=== PATIENT | male | born 1945 | race Caucasian/White ===

== ENCOUNTER 2018-05-18 18:27 | Observation (INO) | payer OTHER ==
--- NOTE | 2018-05-18 19:16 | PDOC ---
History of Present Illness - General Stated Complaint: CHEST PAIN Time Seen by Provider: 05/18/18 19:15 History Source: Patient, Family Exam Limitations: No Limitations - History of Present Illness Initial Comments: 05/18/18 21:05 The patient is a 73 year old male, with a significant PMH of Type II DM, HTN, HLD, COPD, CAD, [place] , and CVA x2 who presents to the emergency department with chest pain since 5PM today. Patient states he was sitting down to eat at [facility] when he suddenly began to experience the chest pain. Patient describes the chest pain as midsternal, nonradiating, intermittent and lasting for 30 minutes at a time. Patient denies any other associated symptoms. Patient denies any alleviating or exacerbating factors. Patient was given nitro and aspirin by EMS en route to the ED with improvement of his pain. Patient was otherwise in his usual state of health prior to the onset of this chest pain. As per the daughter at bedside, the patient uses a lot of upper body strength to get up from his wheelchaird. Patient has similar chest pain approximately one to two times a year. The patient denies leg swelling, abdominal pain, palpitations, shortness of breath, headache and dizziness. Denies fever, chills, nausea, vomit, diarrhea and constipation. Denies dysuria, frequency, urgency and hematuria. Allergies: NKA Past surgical history: None reported. Social history: No reported alcohol, drug or cigarette use. PCP: Dr. Zambrano Past History - Past Medical History Allergies/Adverse Reactions: Allergies Allergy/AdvReac Type Severity Reaction Status Date / Time shellfish derived Allergy Severe Difficulty Verified 12/12/17 19:27 Breathing crab Allergy Uncoded 01/17/16 06:26 lobster Allergy Uncoded 01/17/16 06:26 shrimp Allergy Uncoded 01/17/16 06:26 Home Medications: Ambulatory Orders Acetaminophen [Pain Relief] 500 mg PO BID 01/17/16 Aspirin/Dipyridamole [Aggrenox -] 1 combo PO DAILY 01/17/16 Cholecalciferol (Vitamin D3) [Vitamin D3] 1,000 unit PO DAILY 01/17/16 Menthol [Icy Hot] 1 each TP BID 01/17/16 Polyethylene Glycol 3350 [Miralax 119 gm Btl -] 17 gm PO DAILY 01/17/16 Vit A/Vitamin D3/E/Aloe V/Zinc [Periguard Ointment] 0 gm TP BID 01/17/16 Vitamins A and D [Vitamin A and D] 113 gm TP BID 01/17/16 hydrALAZINE HCL [Apresoline -] 25 mg PO TID 01/17/16 Acetaminophen [Tylenol] 650 mg PO QID PRN #28 capsule 12/12/17 Docusate Sodium [Colace] 200 mg PO DAILY 12/12/17 Insulin (Levemir) [Levemir Vial] 22 unit SQ DAILY 12/12/17 Insulin Aspart [Novolog] 0 unit SQ TID 12/12/17 Insulin Aspart [Novolog] 6 unit SQ TID 12/12/17 Oxycodone HCl 5 mg PO Q4H PRN 12/12/17 Simvastatin 5 mg PO DAILY 12/12/17 Asthma: Yes Cardiac Disorders: Yes ([place] X 2) CVA: Yes COPD: Yes Diabetes: Yes HTN: Yes Hypercholesterolemia: Yes - Immunization History Immunization Up to Date: Yes - Suicide/Smoking/Psychosocial Hx Smoking Status: Yes Smoking History: Unknown if ever smoked Have you smoked in the past 12 months: No Number of Cigarettes Smoked Daily: 10 If you are a former smoker, when did you quit?: 30 years Hx Alcohol Use: No Drug/Substance Use Hx: No Substance Use Type: None Hx Substance Use Treatment: No Review of Systems - Review of Systems Able to Perform ROS?: Yes Comments:: 05/18/18 21:05 CONSTITUTIONAL: No reported: Fever, Chills, Diaphoresis, Generalized Weakness, Malaise, Loss of Appetite HEENT: No reported: Rhinorrhea, Nasal Congestion, Throat Pain, Throat Swelling, Difficulty Swallowing, Mouth Swelling, Ear Pain, Eye Pain, Visual Changes CARDIOVASCULAR: Reported: Chest Pain. No reported: Syncope, Palpitations, Irregular Heart Rate, Lightheadedness, Peripheral Edema RESPIRATORY: No reported: Cough, Shortness of Breath, SOB with Exertion, Orthopnea, Wheezing , Stridor, Hemoptysis GASTROINTESTINAL: No reported: Abdominal pain, Abdominal Distension, Nausea, Vomiting, Diarrhea, Constipation, Melena, Hematochezia GENITOURINARY: No reported: Dysuria, Frequency, Urgency, Hesitancy, Flank Pain, Genital Pain MUSCULOSKELETAL: No reported: Myalgia, Arthralgia, Joint Swelling, Back pain, Neck Pain SKIN: No reported: Rash, Itching, Pallor HEMEATOLOGIC/IMMUNOLOGIC: No reported: Easy Bleeding, Easy Bruising, Lymphadenopathy, Frequent infections ENDOCRINE: No reported: Unexplained Weight Gain, Unexplained Weight Loss, Heat Intolerance , Cold Intolerance NEUROLOGIC: No reported: Headache, Focal Weakness, Paresthesias, Vertigo, Lightheadedness, Unsteady Gait, Seizure, Mental Status Changes, Incontinence PSYCHIATRIC: No reported: Anxiety, Depression *Physical Exam - Vital Signs Last Vital Signs Temp Pulse Resp BP Pulse Ox 97.3 F L 92 H 22 H 140/92 100 05/18/18 18:29 05/18/18 18:29 05/18/18 18:29 05/18/18 18:29 05/18/18 18:29 - Physical Exam Comments: 05/18/18 19:37 GENERAL: The patient is awake, alert, and fully oriented, Nontoxic - in no acute distress. HEAD: Normocephalic, atraumatic. EYES: extraocular movements intact, sclera anicteric, conjunctiva clear. ENT: Normal voice, Moist mucous membranes NECK: Normal range of motion, supple LUNGS: Breath sounds equal, clear to auscultation bilaterally. No wheezes, no rhonchi, no rales. HEART: Regular rate and rhythm, normal S1 and S2 without murmur, rub or gallop. MSK: mild reproducible sternal pain. ABDOMEN: Soft, nontender, normoactive bowel sounds. No guarding, no rebound. . No CVA tenderness EXTREMITIES: Normal range of motion, no edema. no calf tenderness, neg homans sign NEUROLOGICAL: No facial assymetry, Normal speech, PSYCH: Normal mood, normal affect. SKIN: Warm, Dry, normal turgor, Heart Score/ECG Review - History History: Slightly suspicious - Electrocardiogram EKG: Non specific repolarization disturbance - Age Age: >/= 65 - Risk Factors Risk Factors Heart Score: Yes Hx Hypercholesterolemia, Yes Hx Hypertension, Yes Hx Diabetes Based on the list above the patient has:: >/=3 risk factors or Hx atherosclerotic disease - Troponin Troponin: </= normal limit - Score Heart Score - Total: 5 - ECG Impressions Comment:: 05/18/18 20:20 Twelve-lead EKG was performed and reviewed by me. There is normal sinus rhythm with a normal rate. Rate of 84 PVCs present low voltage QRS no st changes suggestive of acute infarction Moderate Sedation - Procedure Monitoring Vital Signs: Procedure Monitoring Vital Signs Temperature 97.3 F L 05/18/18 18:29 Pulse Rate 92 H 05/18/18 18:29 Respiratory Rate 22 H 05/18/18 18:29 Blood Pressure 140/92 05/18/18 18:29 O2 Sat by Pulse Oximetry (%) 100 05/18/18 18:29 ED Treatment Course - LABORATORY CBC & Chemistry Diagram: 05/18/18 20:00 05/18/18 20:00 - ADDITIONAL ORDERS Additional order review: Laboratory Results 05/18/18 05/18/18 20:00 20:00 PT with INR 13.50 H INR 1.14 H Sodium 140 Potassium 4.2 Chloride 104 Carbon Dioxide 30 Anion Gap 6 L BUN 24 H Creatinine 1.4 H Creat Clearance w eGFR 49.96 Random Glucose 267 H Calcium 8.7 Total Bilirubin 0.4 AST 19 ALT 28 Alkaline Phosphatase 104 Creatine Kinase 115 Troponin I < 0.02 Total Protein 7.1 Albumin 3.7 05/18/18 20:00 RBC 4.10 MCV 97.6 H MCHC 35.3 RDW 12.4 MPV 8.0 Neutrophils % 55.5 D Lymphocytes % 27.2 D Monocytes % 11.1 H D Eosinophils % 5.4 H D Basophils % 0.8 - RADIOLOGY Radiology Studies Ordered: Category Date Time Status CHEST X-RAY PORTABLE* [RAD] Stat Radiology 05/18/18 19:33 Taken - Medications Given in the ED: ED Medications Discontinued Medications Generic Name Dose Route Start Last Admin Trade Name Freq PRN Reason Stop Dose Admin Acetaminophen 650 mg 05/18/18 19:33 05/18/18 19:55 Tylenol - PO 05/18/18 19:34 650 mg ONCE ONE Administration Medical Decision Making - Medical Decision Making 05/18/18 19:33 73y M hx of CAD sp [place], multiple CVAs, HTN, DM,HL, presents with complaint of chest pain. Pt notes the chest pain started approx 5:20pm, while he was sitting down to eat. Denies associated n/v, sob, diaphoresis, cough, LE edema.palpitations lightheadedness. No radiation of pain to shoulders, back, arm, abd, LE. Pain is intermittent and lasts approx 30 minutes, pain is currently improved. pt also notes he felt better after gtting ASA and NTG via EMS. concern for possible acs, consider MSK pain will obtain trops, cxr pt given asa by EMS A portion of this note was documented by scribe services under my direction. I have reviewed the details of the note, within reason, and agree with the documentation with the following case summary and management plan written by me 05/18/18 21:09 The patient's blood work was reviewed it is unremarkable including negative troponins 1, chest x-ray is negative for acute process. The patient for further evaluation of chest pain based on heart score of 5 and improvement of cp with nitro 05/18/18 23:[address] pleitez agree with observation under dr. denton's service stable for tele Case discussed in detail with admitting physician including history, physical exam and ancillary studies. Admitting physician has assumed care for the patient, will follow all pending diagnostics and will complete the evaluation and treatment. *DC/Admit/Observation/Transfer Diagnosis at time of Disposition: Chest pain at rest - Discharge Dispostion Condition at time of disposition: Stable Decision to Admit order: Yes Decision to Admit order Date/Time: Decision to Admit Order Category Date Time Status Decision to Admit to Hospital Routine Admission 05/18/18 23:08 Ordered - Referrals Referrals: Ludin Zambrano MD [Primary Care Provider] - - Patient Instructions - Post Discharge Activity
[2018-05-18] MEDS ORDERED: ACETAMINOPHEN 325 MG TABLET (FP) PO ONE (19:33)
[2018-05-18] MEDS ORDERED: ACETAMINOPHEN 325 MG TABLET (FP) ONE (19:51)
[2018-05-18 20:15] LABS: BASO % 0.8 % (0-2.0); EOS % 5.4 % (0-4.5); HEMOGLOBIN 14.1 GM/dL (11.7-16.9); LYMPH % 27.2 % (8-40); MCH 34.5 pg (25.7-33.7); MCHC 35.3 g/dl (32.0-35.9); MEAN CELL VOLUME 97.6 fl (80-96); MONO % 11.1 % (3.8-10.2); NEUT % 55.5 % (42.8-82.8); PLATELET COUNT 210 K/MM3 (134-434); RDW 12.4 % (11.9-15.9); WHITE BLOOD COUNT 6.9 K/mm3 (4.0-10.0)
[2018-05-18 20:38] LABS: INR 1.14 (0.83-1.09); PROTHROMBIN TIME (PATIENT) 13.5 SEC (9.7-13.0)
[2018-05-18 20:55] LABS: ALBUMIN 3.7 g/dl (3.4-5.0); ALK PHOS 104 U/L (45-117); ANION GAP 6 MMOL/L (8-16); BILIRUBIN,TOTAL 0.4 mg/dL (0.2-1); BLOOD UREA NITROGEN 24 mg/dL (7-18); CALCIUM 8.7 mg/dL (8.5-10.1); CHLORIDE 104 mmol/L (98-107); CO2 30 mmol/L (21-32); CREATININE 1.4 mg/dL (0.55-1.3); GLUCOSE,RANDOM 267 mg/dL (74-106); POTASSIUM 4.2 mmol/L (3.5-5.1); SGOT/AST 19 U/L (15-37); SGPT/ALT 28 U/L (13-61); SODIUM 140 mmol/L (136-145); TOT PROT 7.1 g/dl (6.4-8.2)
--- NOTE | 2018-05-18 23:38 | PN ---
Teaching Attending Note Name of Resident: Reji Mattson ATTENDING PHYSICIAN STATEMENT I saw and evaluated the patient. I reviewed the resident's note and discussed the case with the resident. I agree with the resident's findings and plan as documented. SUBJECTIVE: Patient seen and examined; please refer to resident note for further historical documentation. He presents from [facility]; CP with dinner when he was eating. He was BIBA; they gave him SL NTG and ASA 162; the NTG did help alleviate his chest pain. CP lasted aprox 1 hour; is currently complaining of R -sided lateral CP that is somewhat atypical in nature. No radiation, etc. Pain is reproducible mid-sternum extending to the right He did indicate that the pain is similar to prior MS but is in a different location. 2013 MIBI shows a fixed diaphragmatic attenuation, 2016 echo reviewed as well which shows LVEF wnl without any focal wmas. He is unsure of who his para professional is and is a somewhat poor historian. Not on BB as per home meds. He does have a h/o CAD (no PCI, unsure where the cath was done, documented MS >10 years ago), CVAx2 (>10 years ago, no documented residual fnd); this makes him high risk for ACS. Will place on telemetry observation on the medicine service and consult cardiology. 10 sys ROS done and negative aside from HPI PMH and PSH reviewed; Hypertension, Hyperlipidemia, Type 2 diabetes mellitus, COPD, CAD, [place], CVA, Depression/Anxiety. Poor functional status Socially he is [place]. Has not seen CV in multiple years. OBJECTIVE: VS, labs, imaging reviewed NAD, AAO, resting comfortably in bed L-fake eye; NC AT EOMI PERRLA CN2-12 wnl, no fnd RRR s1/2 no mgr Lungs CTAB w/ sym exp NT ND +BS Labs reviewed; CBC shows normal h/h with slight macrocytosis; differential reveals slight eosinophilia that is also seen on 2016 studies. Coags unremarkable. CE negative. Cr 1.4 which is around his baseline since 2011. LFTs completely unremarkable. EKG reviewed and tele reviewed; no major ST-T changes, some PVCs. ASSESSMENT AND PLAN: Presents w/ chest pain that is slightly atypical in nature but with multiple risk factors; doesn't regularly see cardiology. Will r/o ACS 1) Unstable Angina, r/o ACS w/ documented h/o CAD -Place on observation, trend Geronimo, serial EKG. Consult cardiology; will defer further stress testing, etc. to their service (MIBI 2013 reviewed). We will check an echo. He is high risk for CAD given his prior history. -He did see Dr. Poole 2015 for similar-sounding R-sided chest pain and was able to be discharged at that time. -Continue ASA, adding metoprolol tartrate 25 BID. No need for NAZIA given nl LVEF on prior echo. Check A1c, TSH, Lipids, C/w statin (consider changing to lipitor or crestor as an OP given ASCVD risk). -Repeat NTG dose for chest pain alongside APAP for the reproducible component. 2) HTN -He is on hydralazine at home; unclear why. -Continue home meds now but would recommend close FU with PCP to see if he could be moved towards medications indicated with GDMT 3) H/O CVA -Continue home meds; unremarkable neuro exam. 4) DM -Continue some insulin regimine; SSI 5) COPD hx -No issues; monitor. 6) HLD -Continue statin; as per #1 FENA -250cc LR bolus then PO -PRN replete -Cardiac diet -OOB2C, fall precations Full Code Consultants: Cardiology Dispo: Pending specialist evaluation.
--- NOTE | 2018-05-18 23:55 | HP ---
CHIEF COMPLAINT: Chest pain PCP: Dr. Zambrano HISTORY OF PRESENT ILLNESS: 73 y/o M, primarily austrian speaking with PMHx of T2DM, [place], CAD, CVA, HTN was BIBEMS from [facility] for chest pain. Part of the hx was provided by [place] Staff. At approx 17:15 this evening, patient was sitting his wheel chair and began to eat dinner where he suddenly felt severe chest pain. He describes this pain as >10/10, Midsternal sharp pain that radiated to his right chest. He has no associated jaw claudication, palpitations, diaphoresis or nausea. He mentions this pain feels different and much worse from his [place] in the past. Patient is unable to recall details after onset, and his next memory is of arrival in ED. In Route, he was given SL Nitro and ASA 162mg that improved the pain. The pain is reproducible and worsens with inspiration but does not change with position. Denies any recent trauma or falls. Patient is unable to identify any triggering factors. [place] Staff mentions patient is A&Ox3 but has been becoming more confused recently. Additionally he has had whole body aches from the past few weeks and Coughing. Patient denies any recent fevers, chills, SOB, nausea, vomiting, diarrhea, constipation. Recent Travel: Denies PAST MEDICAL HISTORY: T2DM, [place], CAD, CVA, HTN, HLD, COPD, Anxiety, GERD PAST SURGICAL HISTORY: Denies Social History: Smoking: quit 30 years ago Alcohol: Denies Drugs: Denies Ambulatoin: Wheel chair Residence: [facility] Family History: Denies Allergies shellfish derived Allergy (Severe, Verified 12/12/17 19:27) Difficulty Breathing crab Allergy (Uncoded 01/17/16 06:26) lobster Allergy (Uncoded 01/17/16 06:26) shrimp Allergy (Uncoded 01/17/16 06:26) HOME MEDICATIONS: Home Medications Medication Instructions Recorded Acetaminophen [Pain Relief] 500 mg PO BID 01/17/16 Aspirin/Dipyridamole [Aggrenox -] 1 combo PO DAILY 01/17/16 Cholecalciferol (Vitamin D3) 1,000 unit PO DAILY 01/17/16 [Vitamin D3] Menthol [Icy Hot] 1 each TP BID 01/17/16 Polyethylene Glycol 3350 [Miralax 17 gm PO DAILY 01/17/16 119 gm Btl -] Vit A/Vitamin D3/E/Aloe V/Zinc 0 gm TP BID 01/17/16 [Periguard Ointment] Vitamins A and D [Vitamin A and D] 113 gm TP BID 01/17/16 hydrALAZINE HCL [Apresoline -] 25 mg PO TID 01/17/16 Acetaminophen [Tylenol] 650 mg PO QID PRN #28 capsule 12/12/17 Docusate Sodium [Colace] 200 mg PO DAILY 12/12/17 Insulin (Levemir) [Levemir Vial] 22 unit SQ DAILY 12/12/17 Insulin Aspart [Novolog] 0 unit SQ TID 12/12/17 Insulin Aspart [Novolog] 6 unit SQ TID 12/12/17 Oxycodone HCl 5 mg PO Q4H PRN 12/12/17 Simvastatin 5 mg PO DAILY 12/12/17 REVIEW OF SYSTEMS As per HPI PHYSICAL EXAMINATION Vital Signs - 24 hr 05/18/18 18:29 Temperature 97.3 F L Pulse Rate 92 H Respiratory 22 H Rate Blood Pressure 140/92 O2 Sat by Pulse 100 Oximetry (%) GENERAL: A&Ox3, Mild distress HEAD: NCAT EYES: Left eye prothesis, Right pupil, round and reactive to light EARS, NOSE, THROAT: Poor dentition, Oropharynx clear without exudates. Moist mucous membranes. NECK: No JVD LUNGS: CTA b/l, No wheezes, no crackles HEART: Regular rate and rhythm, normal S1 and S2 without murmur CHEST: Tender to palpation over the Midsternum and Right Anterior chest ABDOMEN: Soft, nontender, not distended, + bowel sounds, no guarding, no rebound MUSCULOSKELETAL: No CVA tenderness. EXTREMITIES: 2+ pulses, No peripheral edema. NEUROLOGICAL: Cranial nerves II-XII intact. Normal speech. 2/5 muscle strength in the Left UE and LE; 4/5 in the right. Gross sensation intact throughout. SKIN: Warm, dry Laboratory Results - last 24 hr 05/18/18 05/18/18 05/18/18 20:00 20:00 20:00 WBC 6.9 RBC 4.10 Hgb 14.1 Hct 40.0 MCV 97.6 H MCH 34.5 H MCHC 35.3 RDW 12.4 Plt Count 210 MPV 8.0 Absolute Neuts (auto) 3.8 Neutrophils % 55.5 D Lymphocytes % 27.2 D Monocytes % 11.1 H D Eosinophils % 5.4 H D Basophils % 0.8 Nucleated RBC % 0 PT with INR 13.50 H INR 1.14 H Sodium 140 Potassium 4.2 Chloride 104 Carbon Dioxide 30 Anion Gap 6 L BUN 24 H Creatinine 1.4 H Creat Clearance w eGFR 49.96 Random Glucose 267 H Calcium 8.7 Total Bilirubin 0.4 AST 19 ALT 28 Alkaline Phosphatase 104 Creatine Kinase 115 Troponin I < 0.02 Total Protein 7.1 Albumin 3.7 ASSESSMENT/PLAN: 73 y/o M, primarily austrian speaking with PMHx of T2DM, [place], CAD, CVA, HTN was BIBEMS from [facility] for chest pain #Chest Pain R/O ACS -Initial Trop <0.02, Trend Trops -Initial EKG Sinus rhythm with PVCs, VR 84, QRS 449; Repeat EKG -Echo, Lipid profile, TSH ordered -Cardiology (Dr. Gongora) consulted -ASA 81mg daily -Stat SL Nitro x1 -Tylenol PRN -LR 1/2L Bolus -Toprol XL 25mg BID -Statin -Observe on Tele #PHYLICIA -Hydration via LR -Trend -Consider Urine lytes, Kidney/Renal US #IDDM -ISS, BGM ACHS -Can restart home meds onces reconciled #HTN -Toprol XL 25mg BID -Can restart home meds onces reconciled #FEN -1/2L LR Bolus; PO Fluids after -Lytes WNL -Sodium controlled diet #PPx -DVT: Heparin Dispo: Tele-Obs Visit type - Emergency Visit Emergency Visit: Yes ED Registration Date: 05/18/18 Care time: The patient presented to the Emergency Department on the above date and was hospitalized for further evaluation of their emergent condition. - New Patient This patient is new to me today: Yes Date on this admission: 05/21/18 - Critical Care Critical Care patient: No
[2018-05-19] MEDS ORDERED: LACTATED RINGERS SOLUTION 500 ML IV STA
[2018-05-19] MEDS ORDERED: NITROGLYCERIN SUBLINGUAL 1/150 0.4 MG TAB SL ONE (00:07)
[2018-05-19] MEDS ORDERED: NITROGLYCERIN SUBLINGUAL 1/150 0.4 MG TAB ONE (01:05)
[2018-05-19] MEDS ORDERED: HEPARIN NA (PORCINE) 5,000 UNITS/ML 1ML VIAL ONE (06:42)
[2018-05-19] MEDS: HEPARIN NA (PORCINE) 5,000 UNITS/ML 1ML VIAL SQ SCH ×3 (06:52→21:53)
[2018-05-19 07:00] LABS: BASO % 0.5 % (0-2.0); HEMATOCRIT 38.1 % (35.4-49); HEMOGLOBIN 13.4 GM/dL (11.7-16.9); LYMPH % 31.3 % (8-40); MCH 34.3 pg (25.7-33.7); MCHC 35.2 g/dl (32.0-35.9); MEAN CELL VOLUME 97.4 fl (80-96); MONO % 12.5 % (3.8-10.2); NEUT % 48.7 % (42.8-82.8); PLATELET COUNT 188 K/MM3 (134-434); RBC 3.92 M/mm3 (4.00-5.60); RDW 12.2 % (11.9-15.9); WHITE BLOOD COUNT 6.2 K/mm3 (4.0-10.0)
[2018-05-19] MEDS ORDERED: INSULIN (NOVOLOG) ASPART 100 UNITS/ML 10ML VIAL ONE (07:32)
[2018-05-19] MEDS: INSULIN SLIDING SCALE (NOVOLOG) 1 VIAL SQ SCH ×4 (07:33→21:57)
[2018-05-19 08:05] LABS: ALBUMIN 3.2 g/dl (3.4-5.0); ALK PHOS 95 U/L (45-117); ANION GAP 6 MMOL/L (8-16); BILIRUBIN,TOTAL 0.5 mg/dL (0.2-1); BLOOD UREA NITROGEN 22 mg/dL (7-18); CALCIUM 8.3 mg/dL (8.5-10.1); CHLORIDE 106 mmol/L (98-107); CHOLESTEROL 139 mg/dL (50-200); CO2 29 mmol/L (21-32); CREATININE 1.3 mg/dL (0.55-1.3); GLUCOSE,RANDOM 226 mg/dL (74-106); HDL CHOLESTEROL 49 mg/dL (40-60); MAGNESIUM 1.9 mg/dL (1.8-2.4); PHOSPHOROUS 3.6 mg/dL (2.5-4.9); POTASSIUM 4.8 mmol/L (3.5-5.1); SGOT/AST 19 U/L (15-37); SGPT/ALT 24 U/L (13-61); SODIUM 141 mmol/L (136-145); TOT PROT 6.4 g/dl (6.4-8.2); TRIGLYCERIDES 111 mg/dL (0-150)
--- NOTE | 2018-05-19 09:26 | PN ---
Progress Note, Physician Chief Complaint: Pt lying in stretcher, c/o pain everywhere elda right chest, worse w/ coughing. Denies any chest heaviness, sob, n/v/d - Current Medication List Current Medications: Active Medications Acetaminophen (Tylenol -) 650 mg PO Q4H PRN PRN Reason: FOR CHEST PAIN Aspirin (Asa -) 81 mg PO DAILY [facility] Heparin Sodium (Porcine) (Heparin -) 5,000 unit SQ TID [facility] Last Admin: 05/19/18 06:52 Dose: 5,000 unit Insulin Aspart (Novolog Vial Sliding Scale -) 1 vial SQ ACHS [facility]; Protocol Last Admin: 05/19/18 07:33 Dose: 4 units Metoprolol Succinate (Toprol Xl -) 25 mg PO BID JUSTA Rosuvastatin Calcium (Crestor -) 40 mg PO HS [facility] - Objective Vital Signs: Vital Signs Temperature 97.7 F 05/19/18 02:00 Pulse Rate 60 05/19/18 07:14 Respiratory Rate 20 05/19/18 07:14 Blood Pressure 155/73 05/19/18 07:14 O2 Sat by Pulse Oximetry (%) 96 05/19/18 07:14 Constitutional: Yes: Well Nourished, Calm Cardiovascular: Yes: Regular Rate and Rhythm Respiratory: Yes: Regular, CTA Bilaterally Gastrointestinal: Yes: Normal Bowel Sounds, Soft, Abdomen, Obese, Tenderness ( mild). No: Distention, Vomiting Genitourinary: Yes: WNL Extremities: Yes: WNL Edema: No Neurological: Yes: WNL, Alert, Oriented Psychiatric: Yes: WNL, Alert, Oriented Labs: CBC, BMP 05/19/18 06:30 05/19/18 06:30 INR, PTT INR 1.14 (0.83-1.09) H 05/18/18 20:00 Problem List - Problems (1) Atypical chest pain Assessment/Plan: severe right sided chest pain worse w/ movement, breathing/coughing appears more musculoskeletal trop neg, stress test neg short course of steroids- prednisone 40mg x 1 cardiology following Code(s): R07.89 - OTHER CHEST PAIN (2) Diastolic CHF Assessment/Plan: euvolemic adequate bp control Code(s): I50.30 - UNSPECIFIED DIASTOLIC (CONGESTIVE) HEART FAILURE Qualifiers: Heart failure chronicity: chronic Qualified Code(s): I50.32 - Chronic diastolic (congestive) heart failure (3) Hyperlipidemia Assessment/Plan: stable continue statin Code(s): E78.5 - HYPERLIPIDEMIA, UNSPECIFIED (4) Diabetes Assessment/Plan: controlled bgm, insulin sliding scale hold levemir for now diabetic diet Code(s): E11.9 - TYPE 2 DIABETES MELLITUS WITHOUT COMPLICATIONS Qualifiers: Diabetes mellitus type: type 2 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 use Diabetes mellitus complication status: with kidney complications Diabetes mellitus complication detail: with chronic kidney disease Chronic kidney disease stage: stage 3 (moderate) Qualified Code(s): E11.22 - Type 2 diabetes mellitus with diabetic chronic kidney disease; N18.3 - Chronic kidney disease, stage 3 (moderate); Z79.4 - buttermaker continuous churn (current) use of insulin (5) HTN (hypertension) Assessment/Plan: controlled losartan started by cardiology metoprolol bid Code(s): I10 - ESSENTIAL (PRIMARY) HYPERTENSION Qualifiers: Hypertension type: essential hypertension Qualified Code(s): I10 - Essential (primary) hypertension (6) History of CVA (cerebrovascular accident) Assessment/Plan: chronic pt noted this am to be unclear w/ speech, suspect language barrier, will r/o infectious/neuro etiology head ct w/out acute findings UA/UC ordered continue aggrenox/ statin Code(s): Z86.73 - PRSNL HX OF TIA (TIA), AND CEREB INFRC W/O RESID DEFICITS Assessment/Plan Dispo: SNF, anticipate d/c tomorrow if no clinical changes
--- NOTE | 2018-05-19 09:56 | ECHO ---
Name: GAURAV SHIELDS Exam:Adult Echocardiogram Study Date: 05/19/2018 09:07 AM Age: 73 yrs Reason For Study: Chest pain Height: 64 in Weight: 156 lb BSA: 1.8 m2 MMode/2D Measurements & Calculations IVSd: 0.88 cm Ao root diam: 2.7 cm LVIDd: 4.1 cm LA dimension: 2.9 cm LVIDs: 3.0 cm LVPWd: 0.97 cm EDV(Teich): 73.6 ml LVOT diam: 2.0 cm ESV(Teich): 33.6 ml Doppler Measurements & Calculations MV E max bon: 59.2 cm/sec Med Peak E' Bon: 4.2 cm/sec MV A max bon: 94.3 cm/sec Med E/e': 14.2 MV E/A: 0.63 Lat Peak E' Bon: 4.8 cm/sec Lat E/e': 12.4 Procedure The study was technically difficult with many images being suboptimal in quality. Left Ventricle Left ventricular systolic function is grossly normal. Ejection Fraction = 50%. The transmitral spectr al Doppler flow pattern is suggestive of impaired LV relaxation. Regional wall motion abnormalities idalmis ot be excluded due to limited visualization. Right Ventricle The right ventricle is grossly normal size. The right ventricular systolic function is grossly normal . Atria Normal left and right atrial size and function. Mitral Valve The mitral valve is normal in structure and function. There is no mitral valve stenosis. Tricuspid Valve The tricuspid valve is normal in structure and function. There is mild tricuspid regurgitation. Aortic Valve There is mild aortic sclerosis.;. No hemodynamically significant valvular aortic stenosis. No aortic regurgitation is present. Pulmonic Valve The pulmonic valve is not well seen, but is grossly normal. There is no pulmonic valvular stenosis. Great Vessels The aortic root is normal size. Pericardium/Pleura There is no pericardial effusion. Interpretation Summary The study was technically difficult with many images being suboptimal in quality. Regional wall motion abnormalities cannot be excluded due to limited visualization. Left ventricular systolic function is grossly normal. Ejection Fraction = 50%. The transmitral spectral Doppler flow pattern is suggestive of impaired LV relaxation. There is mild tricuspid regurgitation. There is mild aortic sclerosis.; There is no pericardial effusion. MD Tommy Paulson 05/19/2018 09:55 AM
[2018-05-19] MEDS ORDERED: ASPIRIN 81 MG CHEWABLE TABLETS PO SCH (10:00)
--- NOTE | 2018-05-19 10:29 | CON.CARD ---
Consult Consult Specialty:: cardiology Reason for Consultation:: chest pain; CAD risks; self-reported hx HI - History of Present Illness Chief Complaint: Pt c/o abdominal pain and right=sided chest pain (both intermittent) History of Present Illness: The patient is a 73 year old male, with a significant PMH of Type II DM, HTN, HLD, COPD, CAD, HI , and CVA x2 who presents to the emergency department with chest pain since 5PM today. Patient states he was sitting down to eat at [facility] when he suddenly began to experience the chest pain. Patient describes the chest pain as midsternal, nonradiating, intermittent and lasting for 30 minutes at a time. Patient denies any other associated symptoms. Patient denies any alleviating or exacerbating factors. Patient was given nitro and aspirin by EMS en route to the ED with improvement of his pain. Patient was otherwise in his usual state of health prior to the onset of this chest pain. As per the daughter at bedside, the patient uses a lot of upper body strength to get up from his wheelchaird. Patient has similar chest pain approximately one to two times a year. - History Source History Provided By: Patient, Medical Record Limitations to Obtaining History: Other (mumbles; poor dentition) - Past Medical History [employer]ARM [employer]: Yes: CVA, Dementia Cardio/Vascular: Yes: HTN, HI, Hyperlipdemia Pulmonary: Yes: Bronchitis. No: Asthma Gastrointestinal: Yes: Other (?chronic pains) Infectious Disease: Yes: Other (URI's) Musculoskeletal: Yes: Hemiparesis ENT: Yes: Sinusitis Endocrine: Yes: Diabetes Mellitus - Alcohol/Substance Use Hx Alcohol Use: No History of Substance Use: reports: None - Smoking History Smoking history: Never smoked Have you smoked in the past 12 months: No Aproximately how many cigarettes per day: 10 If you are a former smoker, when did you quit?: 30 years - Social History Usual Living Arrangement: Prison ADL: Support Services Occupation: construction History of Recent Travel: No Home Medications - Allergies Allergies/Adverse Reactions: Allergies Allergy/AdvReac Type Severity Reaction Status Date / Time shellfish derived Allergy Severe Difficulty Verified 05/19/18 10:56 Breathing crab Allergy Uncoded 05/19/18 10:56 lobster Allergy Uncoded 05/19/18 10:56 shrimp Allergy Uncoded 05/19/18 10:56 - Home Medications Home Medications: Ambulatory Orders Aspirin/Dipyridamole [Aggrenox -] 1 combo PO DAILY 01/17/16 Cholecalciferol (Vitamin D3) [Vitamin D3] 1,000 unit PO DAILY 01/17/16 Menthol [Icy Hot] 1 each TP BID 01/17/16 Polyethylene Glycol 3350 [Miralax 119 gm Btl -] 17 gm PO DAILY 01/17/16 Vitamins A and D [Vitamin A and D] 113 gm TP BID 01/17/16 hydrALAZINE HCL [Apresoline -] 25 mg PO TID 01/17/16 Docusate Sodium [Colace] 200 mg PO DAILY 12/12/17 Insulin (Levemir) [Levemir Vial] 24 unit SQ DAILY 12/12/17 Insulin Aspart [Novolog] See Protocol SQ TID 12/12/17 Oxycodone HCl 5 mg PO Q4H PRN 12/12/17 Simvastatin 5 mg PO DAILY 12/12/17 Family Disease History - Family Disease History Family History: Denies Review of Systems - Review of Systems Constitutional: reports: Weakness Eyes: reports: No Symptoms HENT: reports: No Symptoms Neck: reports: No Symptoms Cardiovascular: reports: Chest Pain Respiratory: reports: SOB on Exertion Gastrointestinal: reports: Abdominal Pain, Indigestion Genitourinary: reports: No Symptoms Breasts: reports: No Symptoms Reported Musculoskeletal: reports: Decreased ROM, Muscle Weakness Integumentary: reports: No Symptoms Neurological: reports: Pre-Existing Deficit, Weakness Endocrine: reports: No Symptoms Hematology/Lymphatic: reports: No Symptoms Psychiatric: reports: No Symptoms - Risk Factors Known Risk Factors: Yes: Age, Diabetes Mellitus, Gender, Hypertension, Physical Inactivity, Prior HI /Emb Stroke Vital Signs: Vital Signs Temperature 97.7 F 05/19/18 02:00 Pulse Rate 60 05/19/18 07:14 Respiratory Rate 20 05/19/18 07:14 Blood Pressure 155/73 05/19/18 07:14 O2 Sat by Pulse Oximetry (%) 96 05/19/18 07:14 Constitutional: Yes: Calm Eyes: Yes: WNL HENT: Yes: WNL Neck: Yes: WNL Respiratory: Yes: WNL Gastrointestinal: Yes: Soft. No: Tenderness, Epigastrium Renal/: No: Anuria Heart Sounds: Yes: S1, S2, S4 Musculoskeletal: Yes: Joint Stiffness (left knee), Muscle Weakness Extremities: Yes: Cool Edema: No Peripheral Pulses WNL: Yes Integumentary: Yes: WNL Neurological: Yes: Alert, Oriented, Weakness Psychiatric: Yes: WNL - Other Data Labs, Other Data: CBC, BMP 05/19/18 06:30 05/19/18 06:30 INR, PTT INR 1.14 (0.83-1.09) H 05/18/18 20:00 Troponin, BNP 05/18/18 05/19/18 20:00 06:30 Troponin I < 0.02 < 0.02 Troponin, BNP 05/18/18 05/19/18 20:00 06:30 Troponin I < 0.02 < 0.02 Abnormal Lab Results 05/18/18 05/18/18 05/18/18 20:00 20:00 20:00 RBC MCV 97.6 H MCH 34.5 H Monocytes % 11.1 H D Eosinophils % 5.4 H D PT with INR 13.50 H INR 1.14 H Anion Gap 6 L BUN 24 H Creatinine 1.4 H Random Glucose 267 H Hemoglobin A1c % Calcium Albumin 05/19/18 05/19/18 05/19/18 06:30 06:30 06:30 RBC 3.92 L MCV 97.4 H MCH 34.3 H Monocytes % 12.5 H Eosinophils % 7.0 H PT with INR INR Anion Gap 6 L BUN 22 H Creatinine Random Glucose 226 H Hemoglobin A1c % 8.4 H Calcium 8.3 L Albumin 3.2 L Imaging - Results Chest X-ray: Image Reviewed (no acute process; tracheal deviation to the right) EKG: Image Reviewed (NSR) Problem List - Problems (1) Atypical chest pain Assessment/Plan: Pt primarily c/o epigastric pain and dysphagia; he also has occasional right- sided chest and shoulder pain at rest. Multiple CAD risks; will order stress Lexiscan MIBI (no hx asthma). If no significant ischemia on Stress MIBI, pt can be followed as outpatient, from cardiac perspective. Code(s): R07.89 - OTHER CHEST PAIN (2) CVA (cerebral infarction) Assessment/Plan: old right pontine infarct; small bilateral infarcts (2016 CT). Code(s): I63.9 - CEREBRAL INFARCTION, UNSPECIFIED (3) Diabetes Assessment/Plan: start losartan (DM; HTN; diastolic CHF). Code(s): E11.9 - TYPE 2 DIABETES MELLITUS WITHOUT COMPLICATIONS Qualifiers: Diabetes mellitus type: type 2 Diabetes mellitus nursing home insulin use: with nursing home use Diabetes mellitus complication status: with kidney complications Diabetes mellitus complication detail: with chronic kidney disease Chronic kidney disease stage: stage 3 (moderate) Qualified Code(s): E11.22 - Type 2 diabetes mellitus with diabetic chronic kidney disease; N18.3 - Chronic kidney disease, stage 3 (moderate); Z79.4 - intermediate (current) use of insulin (4) HTN (hypertension) Assessment/Plan: On metoprolol ER. Start losartan (HTN; DM; diastolic CHF). Code(s): I10 - ESSENTIAL (PRIMARY) HYPERTENSION Qualifiers: Hypertension type: essential hypertension Qualified Code(s): I10 - Essential (primary) hypertension (5) Diastolic CHF Code(s): I50.30 - UNSPECIFIED DIASTOLIC (CONGESTIVE) HEART FAILURE Qualifiers: Heart failure chronicity: chronic Qualified Code(s): I50.32 - Chronic diastolic (congestive) heart failure (6) Hyperlipidemia Assessment/Plan: continue rosuvastatin. Code(s): E78.5 - HYPERLIPIDEMIA, UNSPECIFIED
[2018-05-19] MEDS ORDERED: REGADENOSON 0.4 MG/5 ML PRE-FILLED SYRINGE IVPUSH ONE (11:00)
[2018-05-19] MEDS ORDERED: LOSARTAN POTASSIUM 25 MG TABLET PO ONE (14:08)
[2018-05-19] MEDS: metoPROLOL SUCCINATE 25 MG TAB.SR.24H (FP) PO SCH ×2 (14:37→21:53)
[2018-05-19] MEDS: ACETAMINOPHEN 325 MG TABLET (FP) PO PRN ×2 (14:38→21:53)
[2018-05-19] MEDS ORDERED: predniSONE 20 MG TABLET (UD) PO ONE (15:00)
[2018-05-19 18:52] VITALS: BMI 26.7
--- NOTE | 2018-05-19 19:20 | EKG ---
Test Reason : Blood Pressure : / mmHG Vent. Rate : 084 BPM Atrial Rate : 084 BPM P-R Int : 152 ms QRS Dur : 070 ms QT Int : 380 ms P-R-T Axes : 045 -21 044 degrees QTc Int : 449 ms POOR DATA QUALITY, INTERPRETATION MAY BE ADVERSELY AFFECTED SINUS RHYTHM WITH PREMATURE SUPRAVENTRICULAR COMPLEXES AND WITH OCCASIONAL PREMATURE VENTRICULAR COMPLEXES LOW VOLTAGE QRS BORDERLINE ECG WHEN COMPARED WITH ECG OF 17-JAN-2016 20:42, PREMATURE VENTRICULAR COMPLEXES ARE NOW PRESENT QRS AXIS SHIFTED RIGHT ST ELEVATION NOW PRESENT IN LATERAL LEADS Confirmed by MARIE BRUSH, FATOUMATA ([id number]) on 05/19/2018 7:20:33 PM Referred By: Confirmed By:FATOUMATA SALAZAR MD
[2018-05-19 21:22] LABS: URINE APPEARANCE CLEAR; URINE BILIRUBIN NEGATIVE (<2.0 mg/dL); URINE COLOR LTYELLOW; URINE GLUCOSE (UA) 3+ (NEGATIVE); URINE KETONE NEGATIVE (NEGATIVE); URINE LEUK ESTERASE NEGATIVE (NEGATIVE); URINE NITRITE NEGATIVE (NEGATIVE); URINE PROTEIN NEGATIVE (NEGATIVE); URINE UROBILINOGEN NEGATIVE mg/dL (0.2-1.0)
[2018-05-19] MEDS: hydrALAZINE HCL 25 MG TABLET (FP) PO SCH (21:53)
[2018-05-19] MEDS: ROSUVASTATIN CA 20 MG TABLET (FP) PO SCH (21:53)
[2018-05-20] MEDS: INSULIN SLIDING SCALE (NOVOLOG) 1 VIAL SQ SCH ×4 (06:28→21:13)
[2018-05-20] MEDS: HEPARIN NA (PORCINE) 5,000 UNITS/ML 1ML VIAL SQ SCH ×3 (06:28→21:13)
[2018-05-20] MEDS: ACETAMINOPHEN 325 MG TABLET (FP) PO PRN (06:29)
[2018-05-20] MEDS: hydrALAZINE HCL 25 MG TABLET (FP) PO SCH ×3 (06:29→21:13)
[2018-05-20 07:33] LABS: BASO % 0.1 % (0-2.0); EOS % 0.2 % (0-4.5); HEMATOCRIT 38.1 % (35.4-49); HEMOGLOBIN 13.5 GM/dL (11.7-16.9); LYMPH % 16.1 % (8-40); MCH 34.5 pg (25.7-33.7); MCHC 35.4 g/dl (32.0-35.9); MEAN CELL VOLUME 97.5 fl (80-96); MEAN PLT VOLUME 8.5 fl (7.5-11.1); MONO % 8.9 % (3.8-10.2); NEUT % 74.7 % (42.8-82.8); PLATELET COUNT 194 K/MM3 (134-434); RDW 12.2 % (11.9-15.9)
[2018-05-20 08:38] LABS: ANION GAP 8 MMOL/L (8-16); BLOOD UREA NITROGEN 27 mg/dL (7-18); CALCIUM 8.3 mg/dL (8.5-10.1); CHLORIDE 103 mmol/L (98-107); CO2 26 mmol/L (21-32); CREATININE 1.4 mg/dL (0.55-1.3); GLUCOSE,RANDOM 284 mg/dL (74-106); POTASSIUM 4.3 mmol/L (3.5-5.1); SODIUM 138 mmol/L (136-145)
[2018-05-20] MEDS: LOSARTAN POTASSIUM 25 MG TABLET PO SCH (09:40)
[2018-05-20] MEDS: ASPIRIN/DIPYRIDAMOLE 25 MG/200 MG CAPSULE (FP) PO SCH (09:40)
[2018-05-20] MEDS: metoPROLOL SUCCINATE 25 MG TAB.SR.24H (FP) PO SCH ×2 (09:40→21:13)
--- NOTE | 2018-05-20 10:07 | DS ---
Physical Examination Vital Signs: Vital Signs Temperature 36.3 C L 05/20/18 09:42 Pulse Rate 63 05/20/18 09:42 Respiratory Rate 18 05/20/18 09:42 Blood Pressure 135/68 05/20/18 09:42 O2 Sat by Pulse Oximetry (%) 95 05/20/18 00:00 Constitutional: Yes: Well Nourished, No Distress, Calm Cardiovascular: Yes: Regular Rate and Rhythm. No: Gallop, Murmur, Rub Respiratory: Yes: Regular, CTA Bilaterally. No: Rales, Rhonchi, Wheezes Gastrointestinal: Yes: Normal Bowel Sounds, Soft. No: Distention, Tenderness Extremities: Yes: WNL Edema: No Labs: CBC, BMP 05/20/18 06:00 05/20/18 06:00 Discharge Summary Reason For Visit: CHEST PAIN Current Active Problems Atypical chest pain (Acute) Chest pain at rest (Acute) Diastolic CHF (Acute) History of CVA (cerebrovascular accident) (Acute) Hyperlipidemia (Acute) Hospital Course: Mr Hinton is a 73 year old male who comes in with atypical chest pain. Cardiac enzymes x3 were sent and negative. He had a nuclear stress test and ECHO which showed no signs of ischemia. He was given a dose of prednisone and his pain improved. There was some concern for mental status changes noted on the admission H&P. It was not seen here but urinalysis was sent and negative. Head CT also performed and no acute issues noted. If this is again seen in the outpatient setting can consider an outpatient MRI. Patient is stable for discharge back to SNF. 32 minutes spent in preparation of this discharge Condition: Stable - Instructions Diet, Activity, Other Instructions: resume previous diet and activity Referrals: uLdin Zambrano MD [Primary Care Provider] - Disposition: ASSISTED FACILITY - Home Medications Comprehensive Discharge Medication List: Ambulatory Orders Aspirin/Dipyridamole [Aggrenox -] 1 combo PO DAILY 01/17/16 Cholecalciferol (Vitamin D3) [Vitamin D3] 1,000 unit PO DAILY 01/17/16 Menthol [Icy Hot] 1 each TP BID 01/17/16 Polyethylene Glycol 3350 [Miralax 119 gm Btl -] 17 gm PO DAILY 01/17/16 Vitamins A and D [Vitamin A and D] 113 gm TP BID 01/17/16 hydrALAZINE HCL [Apresoline -] 25 mg PO TID 01/17/16 Docusate Sodium [Colace] 200 mg PO DAILY 12/12/17 Insulin (Levemir) [Levemir Vial] 24 unit SQ DAILY 12/12/17 Insulin Aspart [Novolog Flexpen] See Protocol SQ TID 12/12/17 Oxycodone HCl 5 mg PO Q4H PRN 12/12/17 Simvastatin 5 mg PO DAILY 12/12/17 Aspirin [ASA -] 81 mg PO DAILY tab.chew 05/20/18 Losartan Potassium [Cozaar -] 25 mg PO DAILY tablet 05/20/18 Metoprolol Succinate [Toprol XL -] 25 mg PO BID tab.sr.24h 05/20/18
[2018-05-20] MEDS: ROSUVASTATIN CA 20 MG TABLET (FP) PO SCH (21:13)
[2018-05-21] MEDS: HEPARIN NA (PORCINE) 5,000 UNITS/ML 1ML VIAL SQ SCH (06:17)
[2018-05-21] MEDS: INSULIN SLIDING SCALE (NOVOLOG) 1 VIAL SQ SCH ×2 (06:17→11:52)
[2018-05-21] MEDS: ACETAMINOPHEN 325 MG TABLET (FP) PO PRN (06:18)
[2018-05-21] MEDS: hydrALAZINE HCL 25 MG TABLET (FP) PO SCH (06:18)
[2018-05-21] MEDS: ASPIRIN/DIPYRIDAMOLE 25 MG/200 MG CAPSULE (FP) PO SCH (10:01)
[2018-05-21] MEDS: metoPROLOL SUCCINATE 25 MG TAB.SR.24H (FP) PO SCH (10:01)
[2018-05-21] MEDS: LOSARTAN POTASSIUM 25 MG TABLET PO SCH (10:02)
[2018-05-21 10:42] VITALS: BP 133/75; PULSE 68; TEMP 98
== END 2018-05-21 13:05 ==
LOC: JER 18:27 → JERBED 23:08 → J4S 05-19 14:26
PROVIDERS: ADMIT Internal Medicine; ATTEND Internal Medicine
PROC: 3E0337Z Introduction of Electrolytic and Water Balance Substance into Peripheral Vein, Percutaneous Approach (ICD-10-PCS; principal; 2018-05-18)
PROC: 3E033GC Introduction of Other Therapeutic Substance into Peripheral Vein, Percutaneous Approach (ICD-10-PCS; 2018-05-18)
PROC: 3E013VG Introduction of Insulin into Subcutaneous Tissue, Percutaneous Approach (ICD-10-PCS; 2018-05-18)
PROC: 3E013GC Introduction of Other Therapeutic Substance into Subcutaneous Tissue, Percutaneous Approach (ICD-10-PCS; 2018-05-18)
DX: R07.89 Other chest pain (principal); I50.32 Chronic diastolic (congestive) heart failure; E11.22 Type 2 diabetes mellitus with diabetic chronic kidney disease; I12.9 Hypertensive chronic kidney disease with stage 1 through stage 4 chronic kidney disease, or unspecified chronic kidney disease; N18.3 Chronic kidney disease, stage 3 (moderate); I11.0 Hypertensive heart disease with heart failure; E78.5 Hyperlipidemia, unspecified; I25.2 Old myocardial infarction; J44.9 Chronic obstructive pulmonary disease, unspecified; Z86.73 Personal history of transient ischemic attack (TIA), and cerebral infarction without residual deficits; Z79.82 Long term (current) use of aspirin; Z79.4 Long term (current) use of insulin; Z91.013 Allergy to seafood; N17.9 Acute kidney failure, unspecified
CPT/HCPCS: 36415; 70450-TC; 71045-TC-FY; 78452-TC; 80048; 80053; 80061; 81003; 82550; 82962; 83036; 83721; 83735; 84100; 84443; 84484; 85025; 85610; 87086; 93005; 93010; 93017; 93306-TC; 96361; 96372; 96374; 99283-25; A9502; G0378; J1644; J2785

== ENCOUNTER 2019-05-20 15:38 | Emergency (ER) | payer OTHER ==
[2019-05-20 16:13] VITALS: BMI 25.7
--- NOTE | 2019-05-20 16:53 | PDOC ---
History of Present Illness - General Chief Complaint: Injury Stated Complaint: PAIN Time Seen by Provider: 05/20/19 16:18 History Source: Patient Exam Limitations: No Limitations - History of Present Illness Initial Comments: 05/20/19 16:48 HPI: 74 yo M with PMH Hypertension, Hyperlipidemia, Type 2 diabetes mellitus, COPD, CAD, SD, CVA x2, Depression, Anxiety who presents to the ER after sustaining a fall at his NH. The patient states that he was in his wheelchair and hit something, falling forward onto his left chest. He denies any head trauma, LOC, CP, SOB, palpitations, new numbness, tingling, and weakness. He states that he was feeling fine before he fell and complains only of pain s/p fall. He has residual speech deficits since his CVA tenderness, and knows self, place, time, president. In addition to his left chest, further evaluation reveals that pain is also present in his upper abdomen, predominantly on the left below the affected chest. All: NKDA Meds: Per chart PMH: As above, + sciatica PSH: As above Past History - Travel Traveled outside of the country in the last 30 days: No Close contact w/someone who was outside of country & ill: No - Past Medical History Allergies/Adverse Reactions: Allergies Allergy/AdvReac Type Severity Reaction Status Date / Time shellfish derived Allergy Severe Difficulty Verified 05/20/19 16:40 Breathing crab Allergy Uncoded 05/20/19 16:40 lobster Allergy Uncoded 05/20/19 16:40 shrimp Allergy Uncoded 05/20/19 16:40 Home Medications: Ambulatory Orders Cholecalciferol (Vitamin D3) [Vitamin D3 -] 2,000 unit PO DAILY 05/20/19 Clopidogrel Bisulfate [Plavix -] 75 mg PO DAILY 05/20/19 Docusate Sodium [Colace -] 200 mg PO BID 05/20/19 Famotidine [Pepcid -] 40 mg PO DAILY 05/20/19 Hydralazine HCl 25 mg PO Q8H 05/20/19 Insulin (LOG) Aspart [NovoLOG -] 12 units SQ TID 05/20/19 Insulin Detemir [Levemir Flextouch] 4 unit SQ HS 05/20/19 Insulin Regular [NOVOLIN R VIAL *IVPUSH / ER / ICU Only*] 12 units SQ TID Losartan Potassium [Cozaar -] 25 mg PO DAILY 05/20/19 Metoprolol Tartrate [Lopressor -] 25 mg PO BID 05/20/19 Ondansetron [Zofran *Odt*] 4 mg SL TID PRN 05/20/19 Polyethylene Glycol 3350 [Miralax (For Daily Use) -] 17 gm PO DAILY 05/20/19 Senna Laxative 17.2 mg PO DAILY 05/20/19 Simvastatin 5 mg PO HS 05/20/19 Asthma: Yes Cardiac Disorders: Yes CVA: Yes COPD: No Diabetes: Yes HTN: Yes Hypercholesterolemia: Yes - Immunization History Immunization Up to Date: Yes - Psycho Social/Smoking Cessation Hx Smoking Status: Yes Smoking History: Unknown if ever smoked Have you smoked in the past 12 months: No Number of Cigarettes Smoked Daily: 10 If you are a former smoker, when did you quit?: 30 years Hx Alcohol Use: No Drug/Substance Use Hx: No Substance Use Type: None Hx Substance Use Treatment: No Review of Systems - Review of Systems Able to Perform ROS?: Yes Is the patient limited Sami proficient: No Constitutional: No: Chills, Diaphoresis, Fever HEENTM: No: Recent change in vision, Nose Congestion, Throat Pain Respiratory: No: Cough, Shortness of Breath, Wheezing Cardiac (ROS): No: Chest Pain, Edema, Irregular Heart Rate ABD/GI: No: Constipated, Diarrhea, Nausea, Poor Appetite, Poor Fluid Intake, Vomiting : No: Burning, Dysuria, Discharge, Frequency Musculoskeletal: Yes: See HPI. No: Back Pain, Neck Pain Integumentary: Yes: Bruising (stomach). No: Erythema, Pruritus, Rash Neurological: No: Headache, Numbness, Tingling, Weakness Psychiatric: No: Stressors, Emotional Problems Hematologic/Lymphatic: No: Anemia, Blood Clots, Easy Bleeding All Other Systems: Reviewed and Negative *Physical Exam - Vital Signs Last Vital Signs Temp Pulse Resp BP Pulse Ox 97.9 F 55 L 14 120/67 100 05/20/19 16:00 05/20/19 16:00 05/20/19 16:00 05/20/19 16:00 05/20/19 16:00 - Physical Exam 05/20/19 16:55 Vitals reviewed, afebrile, hemodynamically stable Elderly man, appears stated age, no acute distress, laying in hospital bed MMM, normal morphologies, mild facial droop on left (pre-existing), EOMI, NCAT RRR, nl s1s2, no murmurs appreciated, chest wall TTP along mid clavicular line on left chest, worse on lower ribs, no step-offs noted, no bruising or broken skin CTABL, normal WOB, no wheezes / rales / rhonchi Soft, diffusely mildly tender abdomen - more-so in LUQ, some guarding, no rebound, small quarter-sized ecchymosis R kelley-umbilical area - multicolored, appears older than present fall WWP, no clubbing / cyanosis / edema 2+ Radial and PT pulses CN grossly intact, rmlfxs-[id number] intact, normal sensation throughout UE and LE ED Treatment Course - LABORATORY CBC & Chemistry Diagram: 05/20/19 17:20 05/20/19 17:20 Medical Decision Making - Medical Decision Making 05/20/19 17:15 74 yo M with PMH Hypertension, Hyperlipidemia, Type 2 diabetes mellitus, COPD, CAD, SD, CVA x2, Depression, Anxiety who presents s/p mechanical fall at his [facility] with L chest and LUQ abdominal pain. Concerning for rib contusion vs fracture, r /o splenic laceration. Mechanism sounds low energy, exam without bruising, +TTP , unlikely cardiac or pulmonary contusion given reported mechanism and stable patient. Will provide analgesia, get imaging to r/o splenic involvement, assess for cardiac involvement. - CBC, CMP, CP, Lipase - EKG, CXR, Rib Series Left - CTAP with contrast - 1g IV Ofirmev 05/20/19 18:52 - CBC, CMP, Lipase, Troponin all negative or unremarkable - CT pending - EKBPM, Sinus, left axis deviation, QTc 414, no acute ischemic changes - CXR/Rib Series with ossified posterior fractures, also noted on 2018 CXR, no acute findings appreciated by myself, official read pending 05/20/19 21:25 - CT without acute intra-abdominal findings Most likely DX: Rib/Chest Contusion Dispo: Return to [facility] 05/20/19 21:45 - Patient improved with Tylenol, reports it is wearing off - Ordered for Tramadol 10 PO Discharged Discharge - Discharge Information Problems reviewed: Yes Clinical Impression/Diagnosis: Rib contusion Qualifiers: Encounter type: initial encounter Laterality: left Qualified Code(s): S20.212A - Contusion of left front wall of thorax, initial encounter Condition: Improved Disposition: HOME - Admission No - Follow up/Referral Referrals: Ludin Zambrano MD [Primary Care Provider] - - Patient Discharge Instructions Patient Printed Discharge Instructions: How to Prevent Falls Additional Instructions: Fuiste visto por aleksandra cada. Leonie gentry X no mostraron fracturas en leonie costillas. Por favor, jaspal un seguimiento con granado mdico de atencin primaria en 2-3 grigsby. Por favor regrese a la taylor de emergencia si tiene signos o sntomas de dolor en el pecho, dificultad para respirar, fiebre incontrolable, escalofros, nuseas, vmitos, entumecimiento, hormigueo o debilidad en cualquier parte de granado cuerpo, cambios en la visin o dificultad para hablar. Por favor tome leonie medicamentos segn lo recetado. Por favor regrese a la taylor de emergencias si los sntomas persisten, empeoran o surgen nuevos sntomas. You were seen for a fall. Your X-rays showed no fractures of your ribs. Please follow up with your primary care physician in 2-3 days. Please return to the ER if you have any signs or symptoms of chest pain, shortness of breath, uncontrollable fever, chills, nausea, vomiting, numbness, tingling, or weakness in any part of your body, changes in vision, or slurred speech. Please take your medications as prescribed. Please return to the ER if symptoms persist, worsen, or new symptoms arise. - Post Discharge Activity
[2019-05-20] MEDS ORDERED: ACETAMINOPHEN 1000 MG/100 ML VIAL (NON FORMULARY) IVPB ONE (16:57)
--- NOTE | 2019-05-20 16:59 | PDOC ---
Attending Attestation - Resident Resident Name: Malik Suárez - ED Attending Attestation I have performed the following: I have examined & evaluated the patient, The case was reviewed & discussed with the resident, I agree w/resident's findings & plan, Exceptions are as noted - HPI HPI: 05/20/19 17:00 74y M hx of htn, hl, ype 2 dm, CAD sp MS, CVA presents from [facility] for evaluation of unwitnesed fall from chair or wheel chair, falling forward striking his chest/abdomen complaining of lower chest, left lower abdomen. Denies head injury/LOC, neck pain, back pain, any symptoms pior to falling, n/v , diaphoersis, leg or arm pain. Pt on plavix - Physicial Exam PE: 05/20/19 17:39 GENERAL: The patient is awake, alert, Nontoxic - in no acute distress. HEAD: Normocephalic, atraumatic. EYES: extraocular movements intact, sclera anicteric, conjunctiva clear. ENT: Normal voice, Moist mucous membranes. NECK: Normal range of motion, supple LUNGS: Breath sounds equal, clear to auscultation bilaterally. No wheezes, no rhonchi, no rales. HEART: Regular rate and rhythm, normal S1 and S2 without murmur, rub or gallop. CHEST: Mild tenderness on palpation on anterior L chest without bruising, stepoffs, crepitus ABDOMEN: Soft, mild tendeness to LUQ wihout signs of rebound/guarding, No guarding, no rebound. No CVA tenderness EXTREMITIES: Normal range of motion, no edema. NEUROLOGICAL: No facial assymetry, Normal speech, mild contractures of L hand PSYCH: Normal mood, normal affect. SKIN: Warm, Dry, normal turgor, - Medical Decision Making 05/20/19 17:41 Concern for possible blunt chest trauma vs abd injury rib series to r/o fx abd ct to screen for splenic injury wll erassess tlenol for pain 05/20/19 21:49 ct abd neg cxr wo acute fx, old fx noted on L posterior will dc pt with supportive care rturn precautions were discussed Heart Score/ECG Review - ECG Impressions Comment:: 05/20/19 17:42 Twelve-lead EKG was performed and reviewed by me. There is normal sinus rhythm with a rate of 52 left axis deviation sinus bradycardia
[2019-05-20] MEDS ORDERED: ACETAMINOPHEN INJECTION 100 ML IVPB ONE (17:12)
[2019-05-20 17:30] LABS: BASO % 0.6 % (0-2.0); EOS % 3.3 % (0-4.5); HEMATOCRIT 39.4 % (35.4-49); LYMPH % 26.9 % (8-40); MCH 32.5 pg (25.7-33.7); MCHC 33.1 g/dl (32.0-35.9); MEAN CELL VOLUME 98.4 fl (80-96); MEAN PLT VOLUME 7.6 fl (7.5-11.1); MONO % 13.5 % (3.8-10.2); NEUT % 55.7 % (42.8-82.8); PLATELET COUNT 288 K/MM3 (134-434); RDW 12.6 % (11.9-15.9)
[2019-05-20] MEDS ORDERED: morphine CARPU-JECT 2 MG/1 ML DISP.SYRIN IVPUSH ONE (17:43)
[2019-05-20] MEDS ORDERED: MORPHINE SULFATE 2 MG/ML VIAL ONE (17:45)
[2019-05-20 17:57] LABS: ALBUMIN 3.4 g/dl (3.4-5.0); BILIRUBIN,TOTAL 0.2 mg/dL (0.2-1); BLOOD UREA NITROGEN 19.2 mg/dL (7-18); CALCIUM 8.9 mg/dL (8.5-10.1); CREATININE 1.3 mg/dL (0.55-1.3); TOT PROT 6.5 g/dl (6.4-8.2)
[2019-05-20] MEDS ORDERED: traMADol HCL 50 MG TABLET PO ONE (21:44)
[2019-05-20] MEDS ORDERED: traMADol HCL 50 MG TABLET ONE (22:30)
[2019-05-20 22:40] VITALS: BP 120/70; PULSE 56; TEMP 97.6
--- NOTE | 2019-05-21 11:30 | EKG ---
Test Reason : Blood Pressure : / mmHG Vent. Rate : 052 BPM Atrial Rate : 052 BPM P-R Int : 178 ms QRS Dur : 060 ms QT Int : 446 ms P-R-T Axes : 054 -37 -19 degrees QTc Int : 414 ms SINUS BRADYCARDIA LEFT AXIS DEVIATION INFERIOR INFARCT , AGE UNDETERMINED ABNORMAL ECG WHEN COMPARED WITH ECG OF 18-MAY-2018 18:43, VENT. RATE HAS DECREASED Confirmed by KADEN BRUSH, SOILA ([id number]) on 05/21/2019 11:29:42 AM Referred By: Confirmed By:SOILA ALFONSO MD
== END 2019-05-20 22:41 ==
LOC: JER 15:38
PROC: 3E033NZ Introduction of Analgesics, Hypnotics, Sedatives into Peripheral Vein, Percutaneous Approach (ICD-10-PCS; principal; 2019-05-20)
DX: S20.212A Contusion of left front wall of thorax, initial encounter (principal); W05.0XXA Fall from non-moving wheelchair, initial encounter; Y93.89 Activity, other specified; Y99.8 Other external cause status; Y92.129 Unspecified place in nursing home as the place of occurrence of the external cause; I25.10 Atherosclerotic heart disease of native coronary artery without angina pectoris; I10 Essential (primary) hypertension; I25.2 Old myocardial infarction; E78.5 Hyperlipidemia, unspecified; E11.9 Type 2 diabetes mellitus without complications; Z79.84 Long term (current) use of oral hypoglycemic drugs; J44.9 Chronic obstructive pulmonary disease, unspecified; F32.9 Major depressive disorder, single episode, unspecified; F41.8 Other specified anxiety disorders; I69.828 Other speech and language deficits following other cerebrovascular disease; Z79.02 Long term (current) use of antithrombotics/antiplatelets; Z91.013 Allergy to seafood
CPT/HCPCS: 36415; 71046-TC-FY; 71101-TC-LT-FY; 74177-TC; 80053; 82550; 83690; 84484; 85025; 93005; 93010; 96374; 96375; 99283-25; J0131; Q9967